=== PATIENT | male | born 1945 | race Caucasian/White ===

== ENCOUNTER 2022-01-26 10:57 | Emergency (ER) | payer OTHER, SELFPAY ==
[2022-01-26 10:59] VITALS: BP 149/78; PULSE 65; RESP 18; TEMP 36.4; O2SAT 93; BMI 21.0
--- NOTE | 2022-01-26 11:27 | RAD_ITS ---
STUDY: X-RAY - UNILATERAL RIBS ( LEFT ) WITH CHEST REASON FOR EXAM: Male, 77 years old. Fall/injury TECHNIQUE - RIBS: 5 view(s) of the ribs. TECHNIQUE - CHEST: Single PA view of the chest. COMPARISON: None. FINDINGS - RIBS: Normal visualized ribs without a demonstrated fracture. FINDINGS - CHEST: There is hyperinflation of the lungs consistent with chronic obstructive lung disease (COPD). There is no demonstrated pleural abnormality. Normal size heart. Normal mediastinum and linda. Normal visualized pulmonary arteries. Normal visualized aortic arch and descending thoracic aorta. Normal visualized thoracic spine. Normal visualized ribs, clavicles, and shoulders. There is no demonstrated abnormality of the visualized soft tissue structures of the upper abdomen. RAD/Ribs Uni Min 3V w/PA Chest IMPRESSION: RIBS: Normal x-ray examination of the ribs. CHEST: Normal x-ray examination of the chest. Electronically Signed: Lyndon Gong MD at 12:34 EDT ,
--- NOTE | 2022-01-26 11:27 | CT_ITS ---
STUDY: CT BRAIN WITHOUT CONTRAST REASON FOR EXAM: Male, 77 years old. Trauma/fall, lac on top of head RADIATION DOSAGE (If Supplied By Facility): CTDIvol = ( 44.99 ) mGy, DLP = ( 812.98 ) mGycm TECHNIQUE: Transaxial CT imaging of the brain was performed without administration of intravenous contrast material. Individualized dose optimization techniques were used for this CT. COMPARISON: No relevant priors. FINDINGS: Normal soft tissue structures. Normal calvarium. There is mild cerebral atrophy with widening of the extra-axial spaces and ventricular dilatation. There are areas of decreased attenuation within the white matter tracts of the supratentorial brain, consistent with microvascular disease changes. Normal basal ganglia and thalami. Normal brainstem. Normal cerebellum. There is no intracranial hemorrhage. There are no findings of an acute ischemic infarction. Atherosclerotic calcification of the cavernous portions of the internal carotid arteries bilaterally. Normal visualized paranasal sinuses. CT/Brain/Head without Contrast IMPRESSION: Chronic involutional changes of the brain. Electronically Signed: Lyndon Gong MD at 12:33 EDT ,
--- NOTE | 2022-01-26 11:28 | ED.VIS.FALL ---
HPI HPI - Fall History of Present Illness Chief Complaint: Fall Informant: patient Occured/Mechanism Occurred: Days (several) Mechanism/Context: Yes same level fall and Yes trip Narrative: tripping over my own shoes Usually ambulates: Without assistance Pain/Injury Pain Location: head and other (left lower ribcage) Quality of Pain: Aching Current Severity: Mild Maximum Severity: Moderate Worsened by: moving, palpation Relieved by: leaving alone Associated Symptoms Associated Symptoms: Positive for Amnesia (doesn't remember all his falls); Negative for Parasthesias and Weakness Narrative Narrative: Patient is in a care home, he provides relatively limited history. He states he feels fine right now, but if he moves, he has pain in his left rib cage. Denies any dyspnea. He does not remember having any prodromal symptoms before multiple falls, he hit his head a couple days ago and sustained a laceration but the blood is dried, he has had no bleeding recently, he did not present for care until now. Tetanus Immunization: Unknown [facility] Medical History (Updated 01/26/22 @ 14:[address] Kaveh Esquivel MD) Anemia Anxiety Asthma Benign prostatic hyperplasia Bipolar 1 disorder COPD (chronic obstructive pulmonary disease) Depression Diabetes mellitus GERD (gastroesophageal reflux disease) Heavy tobacco smoker Hyperlipemia Lichen simplex chronicus Lives in care home Low back pain Onychomycosis of toenail Organic brain syndrome Paranoid schizophrenia Syncope and collapse Home Medications albuterol 90 mcg INHALATION 4X/DAY PRN PRN 01/26/22 [History Last Taken Unknown] aspirin [Aspir-81] 81 mg PO DAILY 01/26/22 [History Last Taken Unknown] atropine 2 ea QHS PRN 01/26/22 [History Last Taken Unknown] citalopram 30 mg PO QHS 01/26/22 [History Last Taken Unknown] clozapine 50 mg PO BID 01/26/22 [History Last Taken Unknown] docusate sodium 100 mg PO BID 01/26/22 [History Last Taken Unknown] famotidine 20 mg PO QHS 01/26/22 [History Last Taken Unknown] finasteride 5 mg PO DAILY 01/26/22 [History Last Taken Unknown] fludrocortisone 0.1 mg PO DAILY 01/26/22 [History Last Taken Unknown] metoprolol tartrate 37.5 mg PO BID 01/26/22 [History Last Taken Unknown] [id number] acid-vit K [Multi For Him (no iron)] 1 cap PO DAILY 01/26/22 [History Last Taken Unknown] pantoprazole 20 mg PO DAILY 01/26/22 [History Last Taken Unknown] selenium sulfide 1 ea TOPICAL DAILY 01/26/22 [History Last Taken Unknown] simvastatin 120 mg PO QHS 01/26/22 [History Last Taken Unknown] trazodone 75 mg PO QHS 01/26/22 [History Last Taken Unknown] Allergy/AdvReac Type Severity Reaction Status Date / Time No Known Allergies Allergy Verified 01/26/22 11:04 Social History Smoking Status: Current some day smoker tobacco type: cigarettes ROS ROS ED Constitutional Constitutional ED: Denies chills or fever(s) Eyes Eyes: Denies change in vision or diplopia ENT ENT ED: Denies ear pain, epistaxis, facial pain or rhinorrhea Cardiovascular Cardiovascular: Denies chest pain or palpitations Respiratory/Chest Respiratory/Chest: Denies cough or dyspnea Gastrointestinal Gastrointestinal: Denies abdominal pain, diarrhea, melena, nausea or vomiting Genitourinary Genitourinary ED: Denies dysuria or hematuria Musculoskeletal Musculoskeletal: Reports other Details: left mid-low back/side/rib pain; no other back pain ; Denies extremity pain or neck pain Integumentary Reports Abrasions and laceration; Denies abscess or rash Neurologic Neurologic: Reports headache(s); Denies paresthesias or weakness EXAM Physical Exam Const Vital Signs: 01/26/22 10:59 01/26/22 11:49 01/26/22 13:25 Temperature 97.5 F L Temperature Source Temporal Pulse Rate 65 60 Respiratory Rate 18 16 Respiratory Effort Normal Non-Labored Respiratory Depth Normal Respiratory Pattern Normal Blood Pressure 149/78 H 121/74 H Blood Pressure Mean 101 89 Pulse Ox 93 97 Oxygen Delivery Method Room Air Room Air Room Air Positive well nourished and well developed General Appearance ED: well developed and NAD HEENT Reports TM's clear and nasal mucous membranes and turbinates normal HEENT Narrative: Multiple abrasions and/or scabbed laceration on the top of his scalp. Tender without crepitance or depression. No signs of infection or an open wound with active bleeding. It all looks old, approximately several days. Right upper eyelid ecchymosis without any tenderness there or the orbital brim or any other bony prominence of the face. Midface stable. No infraorbital hypoesthesia. No intraoral injury. Face and Sinus: Negative for facial tenderness Tympanic Membrane ED: Yes TM's clear Eyes PERRL and EOMs intact bilaterally Visual Acuity: other Other Details: no entrapment or pain with extraocular movements Neck full ROM and supple General: Negative for tenderness Chest Wall inspection of chest normal and palpation of chest normal Chest Narrative: Tender in the left lower lateral rib cage without flail, crepitance Chest: symmetrical chest wall rise and tenderness; Negative for crepitus Resp normal respiratory effort and clear to auscultation bilaterally Percussion: other equal BS bilat Cardio no murmurs Rate: regular rate Rhythm: regular rhythm GI normal to inspection, nondistended, normoactive bowel sounds, soft to palpation and non-tender Back/Spine normal ROM Cervical Spine: Negative for cervical spine tenderness Thoracic Spine / Upper Back: Negative for thoracic spinal tenderness Lumbar Spine / Lower Back: Negative for lumbar spinal tenderness Extremity normal to inspection and full ROM General Extremety ED: Negative for tenderness Neuro CN's II-XII intact bilaterally, moves all extremities, no focal motor deficits and no sensory deficits noted [place] Coma Scale: document GCS findings Spontaneous Obeys Commands Confused (somewhat to events) 14 Sensorium / Orientation: awake, alert, oriented to person and oriented to place Psych mental status grossly normal and thought process normal Skin no wounds Lesions: no lesions Rashes: no rashes MDM MDM MDM Narrative Medical decision making narrative: CT of the head showed no acute traumatic injuries, 6 view x-ray series of the chest and left ribs is negative on my interpretation, radiology in agreement. Patient was given Tylenol for his pain he remained well and wanted to leave. I did some basic labs since he was fairly poor historian and elderly, they do not show anything significant, I ordered a urine but the patient refuses to give 1 and wants to leave. Discharge stable condition, I do not think we need to scrape the scabs off of the lacerations of the scalp since they are healing, not bleeding, do not appear to be infected, and too late to repair anything. Lab Data Attestation: I reviewed the patient's lab results. Labs: Laboratory Results - last 24 hr 01/26/22 01/26/22 11:50 11:50 WBC 6.7 RBC 3.74 L Hgb 12.0 L Hct 37.0 L MCV 98.9 H MCH 32.1 H MCHC 32.4 RDW Std Deviation 48.9 H RDW Coeff of Anthony 13.5 Plt Count 143 L MPV 11.3 Immature Gran % (Auto) 1.800 H Neut % (Auto) 73.4 H Lymph % (Auto) 11.9 L [place] % (Auto) 9.8 Eos % (Auto) 2.1 Baso % (Auto) 1.0 Absolute Neuts (auto) 5.0 Absolute Lymphs (auto) 0.80 L Nucleated RBC % 0 Sodium 145 Potassium 4.5 Chloride 111 H Carbon Dioxide 34.0 H Anion Gap 0 L BUN 18 Creatinine 1.46 H Estim Creat Clear Calc 44.14 Est GFR (MDRD) Af Amer 60 Est GFR (MDRD) Non-Af 50 L BUN/Creatinine Ratio 12.3 Glucose 137 H Calcium 8.9 Radiography Diagnostic Testing: Clinical Impression(s) from Imaging Studies Brain CT 01/26/22 11:27 IMPRESSION: Chronic involutional changes of the brain. Electronically Signed: Lyndon Gong MD at 12:33 EDT , Ribs w/Chest X-Ray 01/26/22 11:27 IMPRESSION: RIBS: Normal x-ray examination of the ribs. CHEST: Normal x-ray examination of the chest. Electronically Signed: Lyndon Gong MD at 12:34 EDT , Rhythm Strip Rhythm Strip: Sinus Rhythm Rate: 60 Ectopy: None Discharge Plan Triage Chief Complaint: Fall ED Provider: Kaveh Esquivel Dx/Rx/DC Orders Clinical Impression: Closed head injury without concussion, Multiple falls, Laceration of scalp, Contusion of rib on left side Instructions: ED Head Injury (Adult) Prescriptions: No Action trazodone 50 mg Tablet 75 mg PO QHS RF: 0 simvastatin 80 mg Tablet 120 mg PO QHS RF: 0 aspirin [Aspir-81] 81 mg Tablet,Delayed Release (Dr/Ec) 81 mg PO DAILY RF: 0 pantoprazole 20 mg Tablet,Delayed Release (Dr/Ec) 20 mg PO DAILY RF: 0 famotidine 20 mg Tablet 20 mg PO QHS RF: 0 albuterol 90 mcg/actuation Aerosol 90 mcg INHALATION 4X/DAY PRN PRN (Reason: SOB) RF: 0 selenium sulfide 2.5 % Shampoo 1 ea TOPICAL DAILY RF: 0 fludrocortisone 0.1 mg Tablet 0.1 mg PO DAILY RF: 0 docusate sodium 100 mg Tablet 100 mg PO BID RF: 0 finasteride 5 mg Tablet 5 mg PO DAILY RF: 0 clozapine 50 mg Tablet 50 mg PO BID RF: 0 metoprolol tartrate 37.5 mg Tablet 37.5 mg PO BID RF: 0 atropine 0.01 % Drops, Emulsion 2 ea QHS PRN (Reason: DROOLING) RF: 0 Multi For Him (no iron) 400-40 mcg Capsule 1 cap PO DAILY RF: 0 citalopram 30 mg Capsule 30 mg PO QHS RF: 0 [facility] [Primary Care Provider] - As Needed Disposition Disposition: Home, Self Care
[2022-01-26] MEDS: Acetaminophen 325 MG Tablet 650 MG PO (11:51)
--- NOTE | 2022-01-26 11:55 | CM.ED ---
Addendum entered by Maria Guadalupe Lewis 01/26/22 12:28: Copy of meds and problem list given to RN/. Maria Guadalupe DIAZ Original Note: SW received call from Lashonda at [facility] in [place]. She said that patient is not service connected but if he needs admission to call bed control to see if they have a bed and document it so patient does not get a big bill. Patient does have [facility] benefits. Lashonda said that when she saw patient recently he had a huge bruise on his Head. Lashonda will also send me patient's med list. RN and chart calculator Maria Guadalupe DIAZ
[2022-01-26 12:07] LABS: Basophil# 0.07 X10^3/uL; Eosinophil# 0.14 X10^3/uL; Eosinophils% 2.1 % (0-5); Lymphocyte % 11.9 % (19-41); Mean Corp Hgb Conc 32.4 g/dL (32-36); Mean Corpuscular Hgb 32.1 pg (27.0-32.0); Mean Corpuscular Volume 98.9 fL (80-94); Mean Platelet Vol. 11.3 fl (6.2-12.0); Monocyte# 0.66 X10^3/uL; Monocyte% 9.8 % (0-10); NRBC Flagged by Analyzer 0 % (0-5); Neutrophil # 4.95 X10^3/uL (2.7-7.7); Neutrophil % 73.4 % (47-70); Platelet Count 143 K/mm3 (150-450); RBC Distribution Width CV 13.5 % (11.6-14.6); RBC Distribution Width SD 48.9 fl (35.1-43.9); Red Blood Count 3.74 M/mm3 (4.6-6.2); White Blood Count 6.7 K/mm3 (4.4-11.0)
[2022-01-26 12:15] LABS: Anion Gap 0 (5-15); BUN 18 mg/dL (7-18); BUN/Creat Ratio 12.3 RATIO (10-20); Calcium,Total 8.9 mg/dL (8.5-10.1); Chloride 111 mmol/L (98-107); Creatinine, Serum 1.46 mg/dL (0.70-1.30); EST Glomerular Filtration Rate 50 mL/min (>60); Est Glom Filt Rate - Afr Amer 60 mL/min (>60); Estimated Creatinine Clearance 44.14 ml/min; Glucose 137 mg/dL (74-106); Potassium 4.5 mmol/L (3.5-5.1); Sodium Level 145 mmol/L (136-145)
[2022-01-26 13:25] VITALS: BP 121/74; PULSE 60; RESP 16; O2SAT 97
== END 2022-01-26 14:56 | disposition home or self-care (01) ==
PROVIDERS: Emergency Provider Emergency Medicine; Visit Provider Emergency Medicine
DX: S01.01XA Laceration without foreign body of scalp, initial encounter (principal); F20.0 Paranoid schizophrenia; J44.9 Chronic obstructive pulmonary disease, unspecified; F31.9 Bipolar disorder, unspecified; E11.9 Type 2 diabetes mellitus without complications; F17.210 Nicotine dependence, cigarettes, uncomplicated; W18.30XA Fall on same level, unspecified, initial encounter; E78.5 Hyperlipidemia, unspecified; S20.211A Contusion of right front wall of thorax, initial encounter; Z91.81 History of falling; K21.9 Gastro-esophageal reflux disease without esophagitis; F41.9 Anxiety disorder, unspecified; Z79.82 Long term (current) use of aspirin; Z79.899 Other long term (current) drug therapy; N40.0 Benign prostatic hyperplasia without lower urinary tract symptoms; S00.11XA Contusion of right eyelid and periocular area, initial encounter
CPT/HCPCS: 70450; 71101; 80048; 85025; 99284; A4216

== ENCOUNTER 2022-01-27 11:24 | Observation (INO) | payer OTHER, SELFPAY ==
[2022-01-27] VITALS (7 sets, daily range): BP systolic 112–119; BP diastolic 69–76; PULSE 60–70; RESP 16–18; TEMP 36.4–36.8; O2SAT 89–98; BMI 21.9; BMI 21.4
--- NOTE | 2022-01-27 11:48 | CT_ITS ---
STUDY: CT BRAIN WITHOUT CONTRAST REASON FOR EXAM: Male, 77 years old. head injury, weakness FREQUENT FALLS, WEAKNESS RADIATION DOSAGE (If Supplied By Facility): CTDIvol = ( 44.99 ) mGy, DLP = ( 829.85 ) mGycm TECHNIQUE: Transaxial CT imaging of the brain was performed without administration of intravenous contrast material. Individualized dose optimization techniques were used for this CT. COMPARISON: Head CT dated JANUARY 26, 2022 FINDINGS: Normal soft tissue structures. Normal calvarium. No visualized skull fracture or hemorrhagic contusions of the brain parenchyma or subdural bleeds. There is moderate cerebral atrophy with widening of the extra-axial spaces and ventricular dilatation. There are areas of decreased attenuation within the white matter tracts of the supratentorial brain, consistent with microvascular disease changes. Normal basal ganglia and thalami. Normal brainstem. Normal cerebellum. There is no intracranial hemorrhage. There are no findings of an acute ischemic infarction. Normal visualized paranasal sinuses. CT/Brain/Head without Contrast IMPRESSION: 1. Chronic involutional changes of the brain. 2. No visualized skull fracture or hemorrhagic contusions of the brain parenchyma or subdural bleeds. 3. If clinical concern persists consider MRI of the brain for further assessment. Electronically Signed: Demian Duenas MD at 13:30 EDT ,
--- NOTE | 2022-01-27 11:48 | EKG12_ITS ---
Test Reason : FALLS/WEAKNESS Blood Pressure : / mmHG Vent. Rate : 067 BPM Atrial Rate : 067 BPM P-R Int : 170 ms QRS Dur : 096 ms QT Int : 410 ms P-R-T Axes : 009 075 -59 degrees QTc Int : 433 ms Normal sinus rhythm T wave abnormality, consider inferior ischemia T wave abnormality, consider anterior ischemia Abnormal ECG Confirmed by LAURA TUCKER, ANURAG ([id number]), video tape editor SARAN ANDRES ([id number]) on 02/01/2022 7:34:21 AM Referred By: MOHINDER Confirmed By:ANURAG SANCHEZ MD
--- NOTE | 2022-01-27 11:56 | ED.RN ---
ATTEMPTED TO CALL [facility] FOR UPDATED MEDICATION LIST. NO ANSWER, LEFT VOICEMAIL.
[2022-01-27] MEDS: Acetaminophen 500 MG Tablet 1000 MG PO (12:05)
[2022-01-27 12:06] LABS: Absolute Neutrophil Count 6.1 X10^3/uL (2.0-7.7); Basophil# 0.06 X10^3/uL; Basophil% 0.8 % (0-1); Eosinophil# 0.17 X10^3/uL; Eosinophils% 2.2 % (0-5); Hematocrit 40.3 % (40-54); Hemoglobin 12.7 g/dL (13.0-16.5); Lymphocyte % 9.2 % (19-41); Mean Corp Hgb Conc 31.5 g/dL (32-36); Mean Corpuscular Hgb 31.5 pg (27.0-32.0); Mean Platelet Vol. 10.4 fl (6.2-12.0); Monocyte# 0.65 X10^3/uL; Monocyte% 8.5 % (0-10); NRBC Flagged by Analyzer 0 % (0-5); Neutrophil # 6.05 X10^3/uL (2.7-7.7); Platelet Count 152 K/mm3 (150-450); RBC Distribution Width CV 13.6 % (11.6-14.6); Red Blood Count 4.03 M/mm3 (4.6-6.2); White Blood Count 7.7 K/mm3 (4.4-11.0)
[2022-01-27 12:21] LABS: AST(SGOT) 24 U/L (15-37); Alanine Aminotransfer ALT/SGPT 23 U/L (16-61); Albumin, Serum 3.4 g/dL (3.2-5.0); Alkaline Phosphatase 80 U/L (45-117); Anion Gap 3 (5-15); BUN 18 mg/dL (7-18); BUN/Creat Ratio 11.8 RATIO (10-20); Chloride 109 mmol/L (98-107); Creatinine, Serum 1.53 mg/dL (0.70-1.30); EST Glomerular Filtration Rate 47 mL/min (>60); Est Glom Filt Rate - Afr Amer 57 mL/min (>60); Estimated Creatinine Clearance 42.64 ml/min; Globulin 3.4 g/dL (2.2-4.2); Glucose 113 mg/dL (74-106); Potassium 4.5 mmol/L (3.5-5.1); Protein, Total 6.8 g/dL (6.4-8.2); Sodium Level 144 mmol/L (136-145)
--- NOTE | 2022-01-27 12:25 | RAD_ITS ---
STUDY: X-RAY - PELVIS AND LEFT HIP REASON FOR EXAM: Male, 77 years old. left hip pain, falls TECHNIQUE: 3 views of the pelvis and hip. COMPARISON: None. FINDINGS: There is a non-specific bowel gas pattern. Normal visualized soft tissue structures. No fracture or displaced bony fragment. Normal bilateral iliac wings, sacroiliac joints and visualized sacrum. Normal bilateral superior and inferior pubic rami. Normal pubic symphysis. Normal bilateral ischial tuberosities. Normal visualized femoral head. Normal acetabulum. Normal hip joint. RAD/HIP, UNI W/ Pelvis 2-3 Views IMPRESSION: No acute process of the pelvis and hip. Electronically Signed: Demian Deunas MD at 13:36 EDT ,
--- NOTE | 2022-01-27 12:27 | ED.VIS.FALL ---
HPI HPI - Fall History of Present Illness Chief Complaint: Fall Informant: patient Narrative Narrative: Patient is a 77-year-old male with history of bipolar disorder, hyperlipidemia, BPH and paranoid schizophrenia presenting from senior living after multiple falls. Patient was actually seen in the ER yesterday for evaluation of weakness and head injury. He had CBC, BMP and CT of the head as well as rib series on the left. Apparently patient has continued to fall and is complaining of left hip pain at this time. Patient is on any blood thinners. Patient's only complaint is his left hip pain. Patient is a poor historian secondary to his mental baseline. Patient denies any chest pain, shortness of breath or difficulty breathing. No complaint of nausea, vomiting change in bowel habits or difficulty urinating. [facility] Medical History Anemia Anxiety Asthma Benign prostatic hyperplasia Bipolar 1 disorder COPD (chronic obstructive pulmonary disease) Depression Diabetes mellitus GERD (gastroesophageal reflux disease) Heavy tobacco smoker Hyperlipemia Lichen simplex chronicus Lives in senior living Low back pain Onychomycosis of toenail Organic brain syndrome Paranoid schizophrenia Syncope and collapse Home Medications docusate sodium 100 mg PO BID 01/26/22 [History Last Taken Unknown] famotidine 20 mg PO QHS 01/26/22 [History Last Taken Unknown] finasteride 5 mg PO DAILY 01/26/22 [History Last Taken Unknown] fludrocortisone 0.1 mg PO DAILY 01/26/22 [History Last Taken Unknown] pantoprazole 20 mg PO DAILY 01/26/22 [History Last Taken Unknown] selenium sulfide 1 ea TOPICAL DAILY 01/26/22 [History Last Taken Unknown] simvastatin 40 mg PO QHS 01/26/22 [History Last Taken Unknown] trazodone 75 mg PO QHS 01/26/22 [History Last Taken Unknown] albuterol sulfate 1 - 2 puff INHALATION Q6H PRN 01/27/22 [History Last Taken Unknown] aspirin [Aspirin Low-Strength] 81 mg PO DAILY 01/27/22 [History Last Taken Unknown] atropine 2 gtt PO/SL QHS 01/27/22 [History Last Taken Unknown] citalopram 10 mg PO QHS 01/27/22 [History Last Taken Unknown] clozapine 50 mg PO BID 01/27/22 [History Last Taken Unknown] metoprolol tartrate 12.5 mg PO BID 01/27/22 [History Last Taken Unknown] multivitamin with minerals 1 tab PO DAILY 01/27/22 [History Last Taken Unknown] Allergy/AdvReac Type Severity Reaction Status Date / Time No Known Allergies Allergy Verified 01/27/22 11:27 Social History Smoking Status: Current some day smoker tobacco type: cigarettes ROS ROS ED Constitutional Constitutional ED: Denies chills or fever(s) Eyes Eyes: Denies change in vision ENT ENT ED: Denies sore throat Cardiovascular Cardiovascular: Denies chest pain Respiratory/Chest Respiratory/Chest: Denies dyspnea Gastrointestinal Gastrointestinal: Denies abdominal pain, diarrhea or vomiting Musculoskeletal Musculoskeletal: Reports other Details: Left-sided hip pain Integumentary Reports Abrasions; Denies rash Neurologic Neurologic: Reports weakness; Denies headache(s) Psychiatric Psychiatric: Denies depression Hematologic/Lymphatic Hematologic/Lymphatic: Denies easy bleeding or easy bruising EXAM Physical Exam Const Vital Signs: 01/27/22 11:25 01/27/22 11:27 01/27/22 13:57 Temperature 98.2 F 97.7 F L Temperature Source Temporal Temporal Pulse Rate 70 60 Respiratory Rate 18 16 Respiratory Effort Normal Non-Labored Blood Pressure 112/74 114/69 Blood Pressure Mean 86 84 Pulse Ox 95 96 Oxygen Delivery Method Room Air Room Air Positive well nourished and well developed General Appearance ED: well developed and NAD HEENT Reports normocephalic HEENT Narrative: Healing abrasions of the top of the head. No active bleeding. No significant cephalhematoma appreciated. trauma Eyes PERRL and EOMs intact bilaterally Neck full ROM and supple Chest Wall inspection of chest normal Resp normal respiratory effort and clear to auscultation bilaterally Cardio regular rate, regular rhythm and no murmurs GI non-tender and non-distended Palpation: soft Back/Spine no CVA tenderness Back/Spine Narrative: No midline tenderness. Extremity normal to inspection and full ROM Extremity Narrative: No pain with logroll. Extremities are equal length with no rotational deformity. Patient does have tenderness of the left lateral/superior pelvis. Neuro moves all extremities and no focal motor deficits Sensorium / Orientation: alert, oriented to person and oriented to place Motor Exam: Negative for general weakness Psych mental status grossly normal Skin Skin Narrative: Scalp abrasions. MDM MDM MDM Narrative Medical decision making narrative: Patient is evaluated for left-sided hip pain and recurrent falls. He does have a history of syncope. He said multiple falls over the last 24 hours and this is a second ER visit for similar complaints. Girlfriend also notes that he is worried his close backwards and acting more altered than usual. Patient does have signs of head injury from his fall yesterday with dried blood on his scalp and abrasions. Cause for his syncope is investigated in the ER. He has a mild anemia with a hemoglobin of 12.7. This is actually slightly improved from yesterday of 12.0. I question if he is hemoconcentrated. In addition his creatinine is mildly elevated it is now 1.53. It was 1.46 yesterday. EKG does show T wave inversions in the precordial and lateral leads however patient denies any chest pain. High since he troponin is checked and it is 11. No signs of urinary tract infection. Given recurrent falls I did repeat a CT of the brain which does not show any acute process. X-ray of the left hip does not show any acute fracture. This is interpreted by myself as well as radiology. Patient will be admitted to the hospital for further evaluation of his falls and possible PT/OT eval for [place] [facility] placement in case he is not safe to go home. Patient remains hemodynamically stable in the emergency room. Lab Data Attestation: I reviewed the patient's lab results. Labs: Laboratory Results - last 24 hr 01/27/22 01/27/22 01/27/22 12:00 12:00 12:00 WBC 7.7 RBC 4.03 L Hgb 12.7 L Hct 40.3 MCV 100.0 H MCH 31.5 MCHC 31.5 L RDW Std Deviation 50.0 H RDW Coeff of Anthony 13.6 Plt Count 152 MPV 10.4 Immature Gran % (Auto) 0.300 Neut % (Auto) 79.0 H Lymph % (Auto) 9.2 L [place] % (Auto) 8.5 Eos % (Auto) 2.2 Baso % (Auto) 0.8 Absolute Neuts (auto) 6.1 Absolute Lymphs (auto) 0.70 L Nucleated RBC % 0 Sodium 144 Potassium 4.5 Chloride 109 H Carbon Dioxide 32.0 Anion Gap 3 L BUN 18 Creatinine 1.53 H Estim Creat Clear Calc 42.64 Est GFR (MDRD) Af Amer 57 L Est GFR (MDRD) Non-Af 47 L BUN/Creatinine Ratio 11.8 Glucose 113 H Calcium 9.0 Total Bilirubin 0.30 AST 24 ALT 23 Alkaline Phosphatase 80 Troponin I High Sens 11 Total Protein 6.8 Albumin 3.4 Globulin 3.4 Albumin/Globulin Ratio 1.0 Urine Color Urine Clarity Urine pH Ur Specific [place] Urine Protein Urine Glucose (UA) Urine Ketones Urine Occult Blood Urine Nitrite Urine Bilirubin Urine Urobilinogen Ur Leukocyte Esterase Urine RBC Urine WBC Ur Squamous Epith Cells Urine Bacteria Urine Mucus 01/27/22 13:10 WBC RBC Hgb Hct MCV MCH MCHC RDW Std Deviation RDW Coeff of Anthony Plt Count MPV Immature Gran % (Auto) Neut % (Auto) Lymph % (Auto) [place] % (Auto) Eos % (Auto) Baso % (Auto) Absolute Neuts (auto) Absolute Lymphs (auto) Nucleated RBC % Sodium Potassium Chloride Carbon Dioxide Anion Gap BUN Creatinine Estim Creat Clear Calc Est GFR (MDRD) Af Amer Est GFR (MDRD) Non-Af BUN/Creatinine Ratio Glucose Calcium Total Bilirubin AST ALT Alkaline Phosphatase Troponin I High Sens Total Protein Albumin Globulin Albumin/Globulin Ratio Urine Color Yellow Urine Clarity Clear Urine pH 6.0 Ur Specific [place] 1.025 Urine Protein 30 H Urine Glucose (UA) Normal Urine Ketones Negative Urine Occult Blood Negative Urine Nitrite Negative Urine Bilirubin Negative Urine Urobilinogen 1 H Ur Leukocyte Esterase 25 H Urine RBC 0 SEEN Urine WBC 0 SEEN Ur Squamous Epith Cells 0 SEEN Urine Bacteria 0 SEEN Urine Mucus 0 SEEN Radiography Diagnostic Testing: Clinical Impression(s) from Imaging Studies Brain CT 01/27/22 11:48 IMPRESSION: 1. Chronic involutional changes of the brain. 2. No visualized skull fracture or hemorrhagic contusions of the brain parenchyma or subdural bleeds. 3. If clinical concern persists consider MRI of the brain for further assessment. Electronically Signed: Demian Duenas MD at 13:30 EDT Reading Location ID and State: [facility] / [place] , Service support , Hip/Pelvis X-Ray 01/27/22 12:25 IMPRESSION: No acute process of the pelvis and hip. Electronically Signed: Demian Duenas MD at 13:36 EDT , Rhythm Strip Rhythm Strip: Sinus Rhythm Rate: 67 Ectopy: None EKG Initial EKG: Attestation: I personally reviewed and interpreted this EKG as follows: Interpretation: Sinus Rhythm Comments: Normal sinus rhythm at a rate of 67 Normal axis Normal intervals T wave inversions in 3, aVF, V1 through V5 Compared to prior EKG on 03/16/2007 these T wave inversions are new Prior EKG tracings: available for review Prior: Changed Discharge Plan Triage Chief Complaint: Fall Other Complaint: Weakness ED Provider: Amy Farmer Dx/Rx/DC Orders Clinical Impression: Closed head injury without concussion, Multiple falls [facility] Hospital [facility]
[2022-01-27 13:03] LABS: Troponin-I HS 11 pg/mL (3.0-78.0)
[2022-01-27 13:17] LABS: Bacteria 0 SEEN /hpf (None Seen); Mucous, Urine 0 SEEN /hpf (<or=2+); Red Blood Cells-Urine 0 SEEN /hpf (0-5); Squamous Epithelial Cells - UA 0 SEEN /hpf (0-5); White Blood Cells 0 SEEN /hpf (0-5)
[2022-01-27 13:20] LABS: Color, Urine Yellow (Yellow); Glucose, Dipstick Normal (Normal); Ketone-Dipstick Negative (Negative); Leukocyte Esterase-Dipstick 25 /ul (Negative); Nitrite-Dipstick Negative (Negative); Occult Blood-Urine Negative /ul (Negative); Protein-Dipstick 30 mg/dl (Negative); Specific Gravity, Urine 1.025 (1.002-1.030); Urine Bilirubin Dipstick Negative (Negative); Urine Clarity Clear (Clear); Urine Urobilinogen 1 mg/dl (Normal)
--- NOTE | 2022-01-27 14:00 | ED.RN ---
STILL NO FAXED MED LIST FROM [employer]. VINNIE [employer] ATTEMPTING TO CALL [employer] AGAIN.
--- NOTE | 2022-01-27 14:05 | NURSING ---
[facility] AND HAD [facility] LE[facility] MESSAGE REGARDING THE PATIENT.
--- NOTE | 2022-01-27 14:34 | ED.RN ---
CALLED [facility] ABOUT ADMISSION OF PT. LEFT MESSAGE
--- NOTE | 2022-01-27 17:42 | PCM.HP.STD ---
HPI - General General Date of Admission: 01/27/22 Date of Service: 01/27/22 Chief Complaint: Generalized debility HPI Narrative TIMOTHY MENESES, is a 77 M who presents to the emergency room at [facility] for evaluation of generalized debility and unsteadiness of gait. Patient lives in a detention due to organic brain syndrome, bipolar 1 disorder, and schizophrenia. Patient is a poor historian, review of systems was not able to be obtained from the patient. Work-up in the emergency room included labs which were remarkable for creatinine of 1.53, CBC and urinalysis were essentially unremarkable, patient's vital signs were stable and he was afebrile. Patient's pulse ox on room air was 96%. Patient will be placed in observation status on MedSurg for generalized debility, he will be seen and evaluated by PT and OT, patient may need at least temporary placement in a retirement facility. [facility] Medical History Anemia Anxiety Asthma Benign prostatic hyperplasia Bipolar 1 disorder COPD (chronic obstructive pulmonary disease) Depression Diabetes mellitus GERD (gastroesophageal reflux disease) Heavy tobacco smoker Hyperlipemia Lichen simplex chronicus Lives in detention Low back pain Onychomycosis of toenail Organic brain syndrome Paranoid schizophrenia Syncope and collapse Home Medications docusate sodium 100 mg PO BID 01/26/22 [History Last Taken Unknown] famotidine 20 mg PO QHS 01/26/22 [History Last Taken Unknown] finasteride 5 mg PO DAILY 01/26/22 [History Last Taken Unknown] fludrocortisone 0.1 mg PO DAILY 01/26/22 [History Last Taken Unknown] pantoprazole 20 mg PO DAILY 01/26/22 [History Last Taken Unknown] selenium sulfide 1 ea TOPICAL DAILY 01/26/22 [History Last Taken Unknown] simvastatin 40 mg PO QHS 01/26/22 [History Last Taken Unknown] trazodone 75 mg PO QHS 01/26/22 [History Last Taken Unknown] albuterol sulfate 1 - 2 puff INHALATION Q6H PRN 01/27/22 [History Last Taken Unknown] aspirin [Aspirin Low-Strength] 81 mg PO DAILY 01/27/22 [History Last Taken Unknown] atropine 2 gtt PO/SL QHS 01/27/22 [History Last Taken Unknown] citalopram 10 mg PO QHS 01/27/22 [History Last Taken Unknown] clozapine 50 mg PO BID 01/27/22 [History Last Taken Unknown] metoprolol tartrate 12.5 mg PO BID 01/27/22 [History Last Taken Unknown] multivitamin with minerals 1 tab PO DAILY 01/27/22 [History Last Taken Unknown] Allergy/AdvReac Type Severity Reaction Status Date / Time No Known Allergies Allergy Verified 01/27/22 11:27 Social History Smoking Status: Current some day smoker tobacco type: cigars ROS ROS Narrative Complete review of systems was unobtainable from the patient due to his mental status Vital Signs Vital Signs Vital Signs: 01/27/22 11:25 01/27/22 11:27 01/27/22 13:57 Temperature 98.2 F 97.7 F L Temperature Source Temporal Temporal Pulse Rate 70 60 Respiratory Rate 18 16 Respiratory Effort Normal Non-Labored Blood Pressure 112/74 114/69 Blood Pressure Mean 86 84 Blood Pressure Source Blood Pressure Position Blood Pressure Location Pulse Ox 95 96 Oxygen Delivery Method Room Air Room Air 01/27/22 15:16 Temperature 97.6 F L Temperature Source Temporal Pulse Rate 61 Respiratory Rate 16 Respiratory Effort Blood Pressure 119/73 Blood Pressure Mean 88 Blood Pressure Source Monitor Blood Pressure Position Semi-Fowlers Blood Pressure Location Right Arm Pulse Ox 96 Oxygen Delivery Method Room Air Weight Weight: 71.7 kg Body Mass Index (BMI) 21.4 Physical Exam Const alert and no apparent distress Constitutional Narrative: Patient has evidence of cognitive impairment on examination General Appearance: cooperative, well kempt and well developed Orientation / Consciousness: awake, oriented to person, oriented to place and oriented to time HEENT normocephalic, head/scalp atraumatic, hearing grossly normal bilaterally and moist oral mucous membranes Eyes PERRL, EOMs intact bilaterally and conjunctivae normal Neck nuchal rigidity, supple, no JVD, thyroid normal and no carotid bruits General: trachea midline Resp normal respiratory effort and clear to auscultation bilaterally Auscultation: Negative for rales, rhonchi or wheezes Cardio regular rate, regular rhythm, no murmurs, no rub and no gallops GI normal to inspection, nondistended, normoactive bowel sounds, soft to palpation, non-tender and non-distended Extremity no clubbing, cyanosis or edema Skin Skin Narrative: Evidence of superficial scalp abrasions are noted General Skin Exam: no breakdown Neuro CN's II-XII intact bilaterally, no focal motor deficits and no sensory deficits noted Sensorium / Orientation: awake, alert, oriented to person and oriented to place Speech: speech normal Psych Psych Narrative: Patient has evidence of cognitive impairment Results Lab / Micro Data Result Diagrams: 01/27/22 12:00 01/27/22 12:00 Labs: Laboratory Results - last 24 hr 01/27/22 12:00: WBC 7.7, RBC 4.03 L, Hgb 12.7 L, Hct 40.3, MCV 100.0 H, MCH 31.5, MCHC 31.5 L, RDW Std Deviation 50.0 H, RDW Coeff of Anthony 13.6, Plt Count 152, MPV 10.4, Immature Gran % (Auto) 0.300, Neut % (Auto) 79.0 H, Lymph % (Auto) 9.2 L, [place] % (Auto) 8.5, Eos % (Auto) 2.2, Baso % (Auto) 0.8, Absolute Neuts (auto) 6.1, Absolute Lymphs (auto) 0.70 L, Nucleated RBC % 0 01/27/22 12:00: Sodium 144, Potassium 4.5, Chloride 109 H, Carbon Dioxide 32.0, Anion Gap 3 L, BUN 18, Creatinine 1.53 H, Estim Creat Clear Calc 42.64, Est GFR (MDRD) Af Amer 57 L, Est GFR (MDRD) Non-Af 47 L, BUN/Creatinine Ratio 11.8, Glucose 113 H, Calcium 9.0, Total Bilirubin 0.30, AST 24, ALT 23, Alkaline Phosphatase 80, Total Protein 6.8, Albumin 3.4, Globulin 3.4, Albumin/Globulin Ratio 1.0 01/27/22 12:00: Troponin I High Sens 11 01/27/22 13:10: Urine Color Yellow, Urine Clarity Clear, Urine pH 6.0, Ur Specific [place] 1.025, Urine Protein 30 H, Urine Glucose (UA) Normal, Urine Ketones Negative, Urine Occult Blood Negative, Urine Nitrite Negative, Urine Bilirubin Negative, Urine Urobilinogen 1 H, Ur Leukocyte Esterase 25 H, Urine RBC 0 SEEN, Urine WBC 0 SEEN, Ur Squamous Epith Cells 0 SEEN, Urine Bacteria 0 SEEN, Urine Mucus 0 SEEN Rhythm Strip Rhythm Strip: Sinus Rhythm Rate: 67 Ectopy: None Radiology Impression Brain CT 01/27/22 11:48 IMPRESSION: 1. Chronic involutional changes of the brain. 2. No visualized skull fracture or hemorrhagic contusions of the brain parenchyma or subdural bleeds. 3. If clinical concern persists consider MRI of the brain for further assessment. Electronically Signed: Demian Duenas MD at 13:30 EDT , Hip/Pelvis X-Ray 01/27/22 12:25 IMPRESSION: No acute process of the pelvis and hip. Electronically Signed: Demian Duenas MD at 13:36 EDT , Assessment & Plan Assessment/Plan (1) Multiple falls: PLAN: 1. Generalized debility-secondary to multiple medical issues including psychiatric issues and generalized deconditioning-patient will be placed in observation status on [facility], he will be seen by PT and OT, he may need temporary placement in a retirement facility for inpatient rehab services. #2 COPD-as needed aerosol treatments will be ordered for the patient #3 bipolar 1 disorder-patient's medications will be continued #4 hyperlipidemia-statin will be continued #5 schizophrenia-patient's medications will be continued #6 cognitive impairment-secondary to chronic psychiatric medical problems as well as organic brain syndrome-complicates care, management, recovery, and prognosis, Charges/Coding Visit Charges OBSV E&M: 61096 Initial observation care L3
[2022-01-27] MEDS: Acetaminophen 325 MG Tablet 650 MG PO (19:59)
[2022-01-27] MEDS: 0.9% Saline Lock 10 ML Syringe IV (20:00)
[2022-01-27] MEDS: Atorvastatin Calcium 20 MG Tablet PO (21:35)
[2022-01-27] MEDS: Metoprolol Tartrate 25 MG Tablet 12.5 MG PO (21:35)
[2022-01-27] MEDS: Docusate Sodium 100 MG Capsule PO (21:35)
[2022-01-27] MEDS: Citalopram 10 MG Tablet PO (21:35)
[2022-01-27] MEDS: traZODone 50 MG Tablet 75 MG PO (21:36)
[2022-01-28 03:32] VITALS: BP 119/72; PULSE 68; RESP 16; TEMP 36.6; O2SAT 96
[2022-01-28 03:41] VITALS: BP 113/65; BP 119/72; BP 99/71; PULSE 67; PULSE 68; PULSE 78
[2022-01-28] MEDS: Acetaminophen 325 MG Tablet 650 MG PO ×2 (03:44→10:00)
--- NOTE | 2022-01-28 03:51 | NURSING ---
Pt hasnt urinated overnight, BS for 261ml. Pt denies the urge to urinate. notified
[2022-01-28 09:08] VITALS: BP 113/68; PULSE 70; RESP 15; TEMP 36.6; O2SAT 97
[2022-01-28 09:13] VITALS: BP 113/68; PULSE 70
[2022-01-28] MEDS: Fludrocortisone Acetate 0.1 MG Tablet PO (09:13)
[2022-01-28] MEDS: Metoprolol Tartrate 25 MG Tablet 12.5 MG PO (09:13)
[2022-01-28] MEDS: Pantoprazole Sodium 20 MG Tablet PO (09:13)
[2022-01-28] MEDS: Aspirin 81 MG TAB.CHEW PO (09:14)
[2022-01-28] MEDS: Docusate Sodium 100 MG Capsule PO (09:14)
[2022-01-28] MEDS: Finasteride 5 MG Tablet PO (09:14)
[2022-01-28 10:09] VITALS: O2SAT 93
--- NOTE | 2022-01-28 12:53 | TREXTCAR_ITS ---
Diet 01/27/22 15:20 Diet: Regular - General Food consistency:: Regular Liquid Consistency:: Regular/Thin Wound(s) Top of scalp: Wound Type: Laceration Front of scalp: Wound Type: Abrasion Left knee: Wound Type: Abrasion Left shoulder: Wound Type: Abrasion Back of neck: Wound Type: Abrasion Left rey: Wound Type: Abrasion Therapies Weight Bearing: Partial weight bearing Extremity Affected:: Bilateral Lower Physical Therapy: Eval and Treat Occupational Therapy: Eval and Treat Problem/Diagnosis (1) Multiple falls: Status: Acute Allergies/Procedures Done in Hospital Allergies No Known Allergies Allergy (Verified 01/27/22 11:27) Type of Care/Length of Stay Estimated LOS: Convalescent Care Less Than 30 days Type of Care Needed: Skilled Rehab Potential: Good Prognosis: Good Additional Orders/Day of Discharge Day of Discharge: 01/28/22 Dietary and Speech Recommendations Dietitian Recommendations/Changes: Carbohydrate Controlled diet Discharge Plan Admission Admit Date/Time: 01/27/22 14:45 Primary Reason for Your Visit: Falls Attending Provider: Odell Delarosa Primary Care Provider: [facility] Consulting Providers: Bharat Pereyra Discharge Orders/Prescriptions Prescriptions: Continued trazodone 50 mg Tablet 75 mg PO QHS RF: 0 simvastatin 80 mg Tablet 40 mg PO QHS RF: 0 pantoprazole 20 mg Tablet,Delayed Release (Dr/Ec) 20 mg PO DAILY RF: 0 famotidine 20 mg Tablet 20 mg PO QHS RF: 0 selenium sulfide 2.5 % Shampoo 1 ea TOPICAL DAILY RF: 0 fludrocortisone 0.1 mg Tablet 0.1 mg PO DAILY RF: 0 docusate sodium 100 mg Tablet 100 mg PO BID RF: 0 finasteride 5 mg Tablet 5 mg PO DAILY RF: 0 citalopram 20 mg Tablet 10 mg PO QHS RF: 0 aspirin 81 mg Tablet,Chewable 81 mg PO DAILY RF: 0 clozapine 25 mg Tablet 50 mg PO BID RF: 0 multivitamin with minerals Tablet 1 tab PO DAILY RF: 0 albuterol sulfate 90 mcg/actuation Hfa Aerosol Inhaler 1 - 2 puff INHALATION Q6H PRN (Reason: sob) RF: 0 metoprolol tartrate 25 mg Tablet 12.5 mg PO BID RF: 0 atropine 2 gtt PO/SL QHS RF: 0 Referrals / Follow Up: [facility] [Primary Care Provider] - Within 2 Weeks Disposition Disposition (needs filled in before D/C Order can be placed): Alf Facility
--- NOTE | 2022-01-28 13:07 | PCM.PN.HOSP ---
Subjective Subjective Patient is a 77-year-old male comfortably resting in bed, alert and oriented to self. Unclear how much patient comprehends about his current condition, does not appear to be in acute distress. Objective Data Objective Data Vital Signs: Vital Signs Temp Pulse Resp BP Pulse Ox 97.8 F 70 15 113/68 93 01/28/22 09:08 01/28/22 09:13 01/28/22 09:08 01/28/22 09:13 01/28/22 10:09 Oxygen Flow Rate (L/min) 2 Oxygen Delivery Method Room Air Weight: 158 lb 1.143 oz Body Mass Index (BMI) 21.4 Intake & Output: Intake and Output for Last 24 Hours 01/26/22 01/27/22 01/28/22 23:59 23:59 23:59 Intake Total 240 / 240 620 / 620 Output Total 0 / 0 350 / 350 Balance 240 / 240 270 / 270 Lab / Micro Data Result Diagrams: 01/27/22 12:00 01/27/22 12:00 Labs: Laboratory Results - last 24 hr 01/27/22 13:10: Urine Color Yellow, Urine Clarity Clear, Urine pH 6.0, Ur Specific [place] 1.025, Urine Protein 30 H, Urine Glucose (UA) Normal, Urine Ketones Negative, Urine Occult Blood Negative, Urine Nitrite Negative, Urine Bilirubin Negative, Urine Urobilinogen 1 H, Ur Leukocyte Esterase 25 H, Urine RBC 0 SEEN, Urine WBC 0 SEEN, Ur Squamous Epith Cells 0 SEEN, Urine Bacteria 0 SEEN, Urine Mucus 0 SEEN Radiography Diagnostic Testing: Radiology Impression Brain CT 01/27/22 11:48 IMPRESSION: 1. Chronic involutional changes of the brain. 2. No visualized skull fracture or hemorrhagic contusions of the brain parenchyma or subdural bleeds. 3. If clinical concern persists consider MRI of the brain for further assessment. Electronically Signed: Demian Duenas MD at 13:30 EDT , Hip/Pelvis X-Ray 01/27/22 12:25 IMPRESSION: No acute process of the pelvis and hip. Electronically Signed: Demian Duenas MD at 13:36 EDT , Rhythm Strip Rhythm Strip: Sinus Rhythm Rate: 67 Ectopy: None Physical Exam Const alert and no apparent distress Orientation / Consciousness: confused and lethargic HEENT head/scalp atraumatic and moist oral mucous membranes Head and Scalp: normocephalic Eyes PERRL, EOMs intact bilaterally and conjunctivae normal Neck no lymphadenopathy, supple and no JVD Resp normal respiratory effort, no retractions and no use of accessory muscles Cardio regular rate, regular rhythm and no JVD GI normal to inspection, nondistended, normoactive bowel sounds and soft to palpation Extremity normal to inspection, full ROM and no clubbing, cyanosis or edema Skin no rashes or lesions noted, no wounds and skin turgor normal Neuro CN's II-XII intact bilaterally Psych affect normal Assessment & Plan Assessment/Plan (1) Closed head injury without concussion: (2) Multiple falls: (3) Laceration of scalp: PLAN: Day 1 Discharge planning: Discharge to SNF when medically ready. 1) generalized debility/cognitive impairment Current plan is to discharge to SNF awaiting approval from insurance. 2) COPD Not in acute exacerbation, currently satting 92% on room air is without wheezes. Continue albuterol. 3) bipolar disorder 1/schizophrenia/depression Continue citalopram, clozapine and trazodone. 4) hyperlipidemia Continue statin. 5) BPH Continue Proscar. 6) GERD Continue PPI. DVT prophylaxis - low risk, not indicated Patient seen by Fernandez Mas PA-C, under the supervision of Dr. Delaroas. Time spent in patient care: 10 minutes.
--- NOTE | 2022-01-28 14:26 | DS.PCM_ITS ---
Documented by User: Fernandez GUPTA 01/28/22 14:39 Providers Date of Admission: 01/27/22 Primary Care Physician: [facility] Reason For Visit: [place] Diagnosis Discharge Diagnosis (1) Closed head injury without concussion: Status: Acute Code(s): S09.90XA - Unspecified injury of head, initial encounter (2) Multiple falls: Status: Acute Code(s): R29.6 - Repeated falls (3) Laceration of scalp: Status: Acute Code(s): S01.01XA - Laceration without foreign body of scalp, initial encounter Medications at Discharge Home Medications docusate sodium 100 mg PO BID 01/26/22 famotidine 20 mg PO QHS 01/26/22 finasteride 5 mg PO DAILY 01/26/22 fludrocortisone 0.1 mg PO DAILY 01/26/22 pantoprazole 20 mg PO DAILY 01/26/22 selenium sulfide 1 ea TOPICAL DAILY 01/26/22 simvastatin 40 mg PO QHS 01/26/22 trazodone 75 mg PO QHS 01/26/22 albuterol sulfate 1 - 2 puff INHALATION Q6H PRN 01/27/22 aspirin 81 mg PO DAILY 01/27/22 atropine 2 gtt PO/SL QHS 01/27/22 citalopram 10 mg PO QHS 01/27/22 clozapine 50 mg PO BID 01/27/22 metoprolol tartrate 12.5 mg PO BID 01/27/22 multivitamin with minerals 1 tab PO DAILY 01/27/22 Hospital Course Summary of Care Provided Minutes Spent on Discharge: 20 Hospital Course: Patient is a 77-year-old male who was admitted to [facility] on 01/27/2022 for evaluation and management of multiple falls with generalized debility. Patient comes from a long term and has multiple psychiatric comorbidities to include bipolar 1 disorder and schizophrenia. Patient was reported to have a severely worsening generalized debility and unsteadiness of gait with history of recent falls. Imaging to include brain CT and hip/pelvic x-ray did not reveal any acute fracture, trauma or intracranial abnormality. Patient was evaluated by PT/OT who determined that patient was appropriate for further skilled therapy. Patient will be discharged to SNF for ongoing skilled therapy and rehab. All other home medications were continued on discharge and patient is to follow-up with primary care provider within the next 2 weeks. Patient seen by Fernandez Mas PA-C, under the supervision of Dr. Delarosa. Time spent on patient care: 20 minutes. Physical Exam Narrative Patient is a 77-year-old male comfortably resting in bed, alert and oriented to self. Unclear how much patient comprehends about his current condition, does not appear to be in acute distress. Const alert and no apparent distress Orientation / Consciousness: confused HEENT normocephalic, head/scalp atraumatic and hearing grossly normal bilaterally Eyes PERRL, EOMs intact bilaterally and conjunctivae normal Neck no lymphadenopathy, supple and no JVD Resp normal respiratory effort, no retractions and no use of accessory muscles Cardio regular rate, regular rhythm and no JVD GI normal to inspection, nondistended, normoactive bowel sounds and soft to palpation Extremity normal to inspection, full ROM and no clubbing, cyanosis or edema Skin Skin Narrative: Dried blood on top of scalp Neuro CN's II-XII intact bilaterally Psych affect normal Weight / BMI Weight Weight: 158 lb 1.143 oz Body Mass Index (BMI) 21.4 ABG / Lab / Microbiology Data Result Diagrams: 01/27/22 12:00 01/27/22 12:00 Meaningful Use Info Meaningful Use Diagnoses (Choose all that apply): None applicable Discharge Plan Admission Admit Date/Time: 01/27/22 14:45 Primary Reason for Your Visit: Falls Attending Provider: Odell Delarosa Primary Care Provider: [facility] Consulting Providers: Bharat Pereyra Discharge Orders/Prescriptions Prescriptions: Continued trazodone 50 mg Tablet 75 mg PO QHS RF: 0 simvastatin 80 mg Tablet 40 mg PO QHS RF: 0 pantoprazole 20 mg Tablet,Delayed Release (Dr/Ec) 20 mg PO DAILY RF: 0 famotidine 20 mg Tablet 20 mg PO QHS RF: 0 selenium sulfide 2.5 % Shampoo 1 ea TOPICAL DAILY RF: 0 fludrocortisone 0.1 mg Tablet 0.1 mg PO DAILY RF: 0 docusate sodium 100 mg Tablet 100 mg PO BID RF: 0 finasteride 5 mg Tablet 5 mg PO DAILY RF: 0 citalopram 20 mg Tablet 10 mg PO QHS RF: 0 aspirin 81 mg Tablet,Chewable 81 mg PO DAILY RF: 0 clozapine 25 mg Tablet 50 mg PO BID RF: 0 multivitamin with minerals Tablet 1 tab PO DAILY RF: 0 albuterol sulfate 90 mcg/actuation Hfa Aerosol Inhaler 1 - 2 puff INHALATION Q6H PRN (Reason: sob) RF: 0 metoprolol tartrate 25 mg Tablet 12.5 mg PO BID RF: 0 atropine 2 gtt PO/SL QHS RF: 0 [facility] - Within 2 Weeks Disposition Disposition (needs filled in before D/C Order can be placed): [facility] Facility Documented by User: Dr. Odell Delarosa DO 01/28/22 15:15 Providers Date of Admission: 01/27/22 Reason For Visit: [place] Medications at Discharge Home Medications docusate sodium 100 mg PO BID 01/26/22 famotidine 20 mg PO QHS 01/26/22 finasteride 5 mg PO DAILY 01/26/22 fludrocortisone 0.1 mg PO DAILY 01/26/22 pantoprazole 20 mg PO DAILY 01/26/22 selenium sulfide 1 ea TOPICAL DAILY 01/26/22 simvastatin 40 mg PO QHS 01/26/22 trazodone 75 mg PO QHS 01/26/22 albuterol sulfate 1 - 2 puff INHALATION Q6H PRN 01/27/22 aspirin 81 mg PO DAILY 01/27/22 atropine 2 gtt PO/SL QHS 01/27/22 citalopram 10 mg PO QHS 01/27/22 clozapine 50 mg PO BID 01/27/22 metoprolol tartrate 12.5 mg PO BID 01/27/22 multivitamin with minerals 1 tab PO DAILY 01/27/22 Hospital Course Operations None Procedures None Summary of Care Provided Minutes Spent on Discharge: 20 Hospital Course: Patient seen and examined independently. Data and vitals reviewed. I agree with the above note by the physician curatorial assistant. 77-year-old male with a history of organic brain syndrome, bipolar disorder schizophrenia presents with weakness. Work-up was unremarkable. Patient was evaluated by therapy and would be discharged to intermediate facility stable condition. Greater than 20 minutes reviewing documentation, data and evaluating patient. Physical Exam Const Constitutional Narrative: confused. disshevled. afebrile. non-oxic. Resp normal respiratory effort, no retractions and no use of accessory muscles Cardio regular rate, regular rhythm, S1 normal heart sound and S2 normal heart sound GI normal to inspection, nondistended, normoactive bowel sounds and soft to palpation ABG / Lab / Microbiology Data Result Diagrams: 01/27/22 12:00 01/27/22 12:00 Discharge Plan Admission Admit Date/Time: 01/27/22 14:45 Primary Reason for Your Visit: Falls Attending Provider: Odell Delarosa Primary Care Provider: [facility] Consulting Providers: Bharat Pereyra Discharge Orders/Prescriptions Prescriptions: Continued trazodone 50 mg Tablet 75 mg PO QHS RF: 0 simvastatin 80 mg Tablet 40 mg PO QHS RF: 0 pantoprazole 20 mg Tablet,Delayed Release (Dr/Ec) 20 mg PO DAILY RF: 0 famotidine 20 mg Tablet 20 mg PO QHS RF: 0 selenium sulfide 2.5 % Shampoo 1 ea TOPICAL DAILY RF: 0 fludrocortisone 0.1 mg Tablet 0.1 mg PO DAILY RF: 0 docusate sodium 100 mg Tablet 100 mg PO BID RF: 0 finasteride 5 mg Tablet 5 mg PO DAILY RF: 0 citalopram 20 mg Tablet 10 mg PO QHS RF: 0 aspirin 81 mg Tablet,Chewable 81 mg PO DAILY RF: 0 clozapine 25 mg Tablet 50 mg PO BID RF: 0 multivitamin with minerals Tablet 1 tab PO DAILY RF: 0 albuterol sulfate 90 mcg/actuation Hfa Aerosol Inhaler 1 - 2 puff INHALATION Q6H PRN (Reason: sob) RF: 0 metoprolol tartrate 25 mg Tablet 12.5 mg PO BID RF: 0 atropine 2 gtt PO/SL QHS RF: 0 Referrals / Follow Up: [facility] [Primary Care Provider] - Within 2 Weeks Disposition Disposition (needs filled in before D/C Order can be placed): [facility] Facility Charges/Coding Visit Charges OBSV E&M: 07414 Observation care discharge
[2022-01-28 15:31] VITALS: BP 118/73; PULSE 87; RESP 15; TEMP 36.7; O2SAT 97
--- NOTE | 2022-01-28 15:40 | NURSING ---
report called to Harris Christianson RN at [facility] [phone]
--- NOTE | 2022-01-28 16:42 | CASEMGMT ---
ZINA reviewed therapy notes and patient will need short term rehab. ZINA noted in patient's paper chart that patient has a legal guardian and a foster care case manager with [employer]. Legal guardian is staff attorney Geo Aristidessudeep ([phone]). Patient's foster care case manager is Cinthia and her number is [phone]. ZINA called Cinthia and she is patient's mental health foster care case manager through the [employer]. Patient has not had any emergency psychiatric admissions since 1996. Patient has been stable and living at [facility]. Cinthia said that patient's legal guardian Geo has some other wards at [facility] so that is likely where he will want patient to go. SW thanked her for the information and SW will keep her updated. ZINA called patient's guardian Geo Chau. ZINA introduced self and role at [facility]. ZINA explained patient will need short term rehab at a jail. Geo said he would like patient to go to [facility]. ZINA let him know SW will work on this and keep him updated. ZINA faxed referral to [facility]. ZINA called [facility] and spoke with Ashley regarding referral. Ashley said they can take patient. ZINA notified physician that patient can be discharged to [facility] today. ZINA called Facility Manager Histology Geo Chau's office to obtain a copy of the guardianship papers. This was faxed and received by ZINA. ZINA completed a PASRR on HENS as patient is observation status in the hospital. Patient has a diagnosis of Organic Brain Disorder. ZINA called [facility] and spoke with the PASRR department. ZINA asked if that disorder fits under Developmental Disabilities (DD) section. ZINA was informed by Ivett that this diagnosis is under Dementia not DD. ZINA completed PASRR and patient did not trigger further review. ZINA obtained orders and COVID test. ZINA arranged for patient to get picked up at 4p via cot. ZINA faxed orders, COVID test, and medicinal plant picker time to Ashley at [facility]. ZINA also called Ashley and confirmed she received the fax and she did. ZINA notified RN, intelligence clerk, patient's guardian Geoanthony Chau, patient's foster care case manager Cinthia, and [facility]. All in agreement with d/c plan. Plan: d/c to [facility] under skilled level of care on a PASRR as patient was observation status in the hospital. [facility] transported via cot. Natalia SHARMA
== END 2022-01-28 13:03 ==
LOC: ED 12:02 → PCU 14:27
PROVIDERS: Admitting Provider Internal Medicine; Emergency Provider Emergency Medicine
DX: S09.90XA Unspecified injury of head, initial encounter (principal); F20.9 Schizophrenia, unspecified; J44.9 Chronic obstructive pulmonary disease, unspecified; F31.9 Bipolar disorder, unspecified; E11.9 Type 2 diabetes mellitus without complications; S01.01XA Laceration without foreign body of scalp, initial encounter; W19.XXXA Unspecified fall, initial encounter; F17.290 Nicotine dependence, other tobacco product, uncomplicated; R53.81 Other malaise; R53.1 Weakness; D64.9 Anemia, unspecified; E78.5 Hyperlipidemia, unspecified; F17.210 Nicotine dependence, cigarettes, uncomplicated; M25.552 Pain in left hip; R41.89 Other symptoms and signs involving cognitive functions and awareness; Z79.899 Other long term (current) drug therapy; N40.0 Benign prostatic hyperplasia without lower urinary tract symptoms; R29.6 Repeated falls; Y93.9 Activity, unspecified; Y99.9 Unspecified external cause status; Y92.9 Unspecified place or not applicable; K21.9 Gastro-esophageal reflux disease without esophagitis; L28.0 Lichen simplex chronicus; Z79.82 Long term (current) use of aspirin
CPT/HCPCS: 70450; 73502; 80053; 81001; 84484; 85025; 87426; 93005; 97162; 97166; 99218; 99285; A4216; G0378